=== PATIENT | female | born 1995 | race Caucasian/White ===

== ENCOUNTER 2016-11-08 22:36 | Emergency (ER) | payer BC ==
[2016-11-08 22:54] VITALS: BP 123/82
--- NOTE | 2016-11-08 23:56 | EDM.PDOC ---
ED HPI GENERAL MEDICAL PROBLEM - General Chief Complaint: Lower Extremity Injury/Pain Stated Complaint: L KNEE INJURY Time Seen by Provider: 11/08/16 22:54 Source of Information: Reports: Patient, Family (Father) History Limitations: Reports: No Limitations - History of Present Illness INITIAL COMMENTS - FREE TEXT/NARRATIVE: left knee pain; this is a 21 year old female presents to ER with Father, reports in the area on vacation, was at playground, swinging Brother and pushing on playground equipment, now this evening knee is painful. denies any past injury to knee, denies any falls, twisting or impact to the knee. 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 Left Knee Pain Score (Numeric/FACES): 5 - Related Data Allergies Allergy/AdvReac Type Severity Reaction Status Date / Time No Known Allergies Allergy Verified 11/08/16 22:54 Home Meds: Home Meds Loratadine 10 mg PO DAILY 11/08/16 [History] Past Medical History - Past Health History Medical/Surgical History: Denies Medical/Surgical History - Past Surgical History GI Surgical History: Reports: Hernia Repair/Other Social & Family History - Tobacco Use Smoking Status *Q: Never Smoker - Caffeine Use Caffeine Use: Reports: None - Recreational Drug Use Recreational Drug Use: No Review of Systems - Review of Systems Review Of Systems: See Below Constitutional: Reports: Other (knee pain) Eyes: Reports: No Symptoms Ears: Reports: No Symptoms Nose: Reports: No Symptoms Mouth/Throat: Reports: No Symptoms Respiratory: Reports: No Symptoms Cardiovascular: Reports: No Symptoms GI/Abdominal: Reports: No Symptoms Genitourinary: Reports: No Symptoms Musculoskeletal: Reports: Joint Pain Skin: Reports: No Symptoms Neurological: Reports: No Symptoms Psychiatric: Reports: No Symptoms ED EXAM, GENERAL - Physical Exam Exam: See Below Exam Limited By: No Limitations General Appearance: Alert, WD/WN, No Apparent Distress Nose: Normal Inspection Head: Atraumatic, Normocephalic Neck: Normal Inspection, Supple Respiratory/Chest: No Respiratory Distress Extremities: Normal Inspection, Normal Range of Motion, Leg Pain (left knee pain at patella, no joint laxity is noted. no acute edema, no rednss, no pops, clicks) Neurological: Alert, Oriented, No Motor/Sensory Deficits Psychiatric: Normal Affect, Normal Mood Skin Exam: Warm, Dry, Intact, Normal Color, No Rash Lymphatic: No Adenopathy Course - Vital Signs Last Recorded V/S: Last Vital Signs Temp 36.7 C 11/08/16 22:53 Pulse 85 11/08/16 22:53 Resp 16 11/08/16 22:53 BP 123/82 11/08/16 22:53 Pulse Ox 100 11/08/16 22:53 - Orders/Labs/Meds Orders: Active Orders 24 hr Category Date Time Status Knee 3V Lt [CR] Stat Exams 11/08/16 23:02 Taken - Radiology Interpretation Free Text/Narrative:: -xray of left knee negative; await radiology report -apply paz wrap -declines Toradol or Narcotics review Xray with Parent and Crystal. agree with plan of care Departure - Departure Time of Disposition: 00:02 Disposition: Home, Self-Care 01 Condition: Good Clinical Impression: Sprain of knee - Discharge Information Instructions: Muscle Strain, [id number] Referrals: PCP,None [Primary Care Provider] - Forms: ED Department Discharge Care Plan Goals: left knee sprain -apply ice for x 2 days for pain then may use heat -rest, no high impact sports or activities -take over the counter Motrin 600mg every 8 hours as needed for pain, or Tylenol 650mg by mouth every 4 hours for pain -apply paz to knee for next 2-3 days for comfort Follow up with Primary Care for recheck if not improved in next 7 to 10 days return to ER for any increased pain,swelling, redness, fever, chills or not improved - Problem List & Annotations (1) Sprain of knee SNOMED Code(s): 01734096 Code(s): S83.90XA - SPRAIN OF UNSPECIFIED SITE OF UNSPECIFIED KNEE, INIT ENCNTR Status: Acute Priority: Medium Current Visit: Yes - Problem List Review Problem List Initiated/Reviewed/Updated: Yes - My Orders Last 24 Hours: My Active Orders 11/08/16 23:02 Knee 3V Lt [CR] Stat - Assessment/Plan Last 24 Hours: My Active Orders 11/08/16 23:02 Knee 3V Lt [CR] Stat Plan: left knee sprain -apply ice for x 2 days for pain then may use heat -rest, no high impact sports or activities -take over the counter Motrin 600mg every 8 hours as needed for pain, or Tylenol 650mg by mouth every 4 hours for pain -apply paz to knee for next 2-3 days for comfort Follow up with Primary Care for recheck if not improved in next 7 to 10 days return to ER for any increased pain,swelling, redness, fever, chills or not improved
--- NOTE | 2016-11-09 08:30 | CR ---
Knee 3V Lt INDICATION: sprain COMPARISON: None FINDINGS: Three views. No fracture, dislocation, or other bony abnormality seen. IMPRESSION: Negative study.
== END 2016-11-08 23:58 | disposition home or self-care (01) ==
LOC: JP.ED 22:36
DX: S83.92XA Sprain of unspecified site of left knee, initial encounter (principal); Z79.899 Other long term (current) drug therapy; Z98.890 Other specified postprocedural states; W22.8XXA Striking against or struck by other objects, initial encounter
CPT/HCPCS: 73562-26-LT; 73562-LT; 99284